=== PATIENT | male | born 2000 | race Asian ===

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

== ENCOUNTER 2018-11-22 22:38 | Emergency (ER) | payer OTHER ==
[~2018-11-22] VITALS: Ht 175.3 cm; Wt 72.6 kg
[2018-11-23 00:05] VITALS: BP 110/60; TEMP 98.3
== END 2018-11-23 00:05 | disposition home or self-care (01) ==
LOC: ED 22:38
DX: G43.909 Migraine, unspecified, not intractable, without status migrainosus (principal)
CPT/HCPCS: 96372; 99283; J1885; J2405

== ENCOUNTER 2019-04-22 21:43 | Emergency (ER) | payer OTHER ==
[~2019-04-22] VITALS: Ht 175.3 cm; Wt 69.4 kg
[2019-04-22 22:45] VITALS: BP 120/64; TEMP 98
== END 2019-04-22 22:45 | disposition home or self-care (01) ==
LOC: ED 21:43
DX: K01.1 Impacted teeth (principal)
CPT/HCPCS: 99282

== ENCOUNTER 2019-04-27 05:51 | Emergency (ER) | payer OTHER ==
[~2019-04-27] VITALS: Ht 175.3 cm; Wt 61.7 kg
[2019-04-27 08:08] VITALS: BP 114/56; TEMP 99
== END 2019-04-27 08:16 | disposition home or self-care (01) ==
LOC: ED 05:51
DX: G43.909 Migraine, unspecified, not intractable, without status migrainosus (principal); R11.2 Nausea with vomiting, unspecified
CPT/HCPCS: 96372; 99283; J3030

== ENCOUNTER 2019-06-30 21:57 | Emergency (ER) | payer OTHER ==
[~2019-06-30] VITALS: Ht 175.3 cm; Wt 61.7 kg
[2019-06-30 23:09] LABS: PLATELET COUNT 142 K/uL (142-355)
[2019-06-30 23:47] VITALS: TEMP 98.4
[2019-07-01 00:09] LABS: POTASSIUM 3.8 mmol/L (3.6-5.2)
[2019-07-01 07:06] VITALS: BP 130/77
== END 2019-07-01 07:07 | disposition short-term general hospital (02) ==
LOC: ED 21:57
PROVIDERS: Family Medicine
PROC: 30233N1 Transfusion of Nonautologous Red Blood Cells into Peripheral Vein, Percutaneous Approach (ICD-10-PCS; principal; 2019-06-30)
DX: D64.9 Anemia, unspecified (principal); K52.9 Noninfective gastroenteritis and colitis, unspecified; K82.8 Other specified diseases of gallbladder; R16.1 Splenomegaly, not elsewhere classified; R94.31 Abnormal electrocardiogram [ECG] [EKG]
CPT/HCPCS: 36415; 36430; 80053; 80307; 81000; 82150; 83605; 83690; 85007; 85027; 86850; 86900; 86901; 86922; 87040; 87502; 93005; 96361; 96365; 96368; 96375; 99284; J0690; J1885; J2405; J3490; P9016; Q9963

== ENCOUNTER 2019-07-01 07:24 | Outpatient (CLI) | payer OTHER | END 2019-07-01 08:44 | disposition short-term general hospital (02) | LOC: AMB 07:24 | DX: D64.9 Anemia, unspecified (principal); K52.9 Noninfective gastroenteritis and colitis, unspecified; K82.8 Other specified diseases of gallbladder; R94.31 Abnormal electrocardiogram [ECG] [EKG] | CPT/HCPCS: A0425; A0427 ==

== ENCOUNTER 2019-08-01 11:35 | Emergency (ER) | payer OTHER ==
[~2019-08-01] VITALS: Ht 175.3 cm; Wt 61.7 kg
[2019-08-01 13:10] VITALS: BP 114/60; TEMP 98.9
== END 2019-08-01 13:17 | disposition home or self-care (01) ==
LOC: ED 11:35
DX: J06.9 Acute upper respiratory infection, unspecified (principal); R50.9 Fever, unspecified; F17.210 Nicotine dependence, cigarettes, uncomplicated
CPT/HCPCS: 87502; 87651; 99283

== ENCOUNTER 2019-10-31 20:46 | Emergency (ER) | payer OTHER ==
[~2019-10-31] VITALS: Ht 175.3 cm; Wt 61.7 kg
[2019-10-31 21:25] LABS: POTASSIUM 4.8 mmol/L (3.6-5.2); SODIUM 122 mmol/L (136-145)
[2019-10-31 21:30] LABS: PLATELET COUNT 115 K/uL (142-355)
[2019-10-31 21:37] LABS: PARTIAL THROMBOPLASTIN TIME 27.9 SECONDS (24.5-33.6)
[2019-11-01 01:54] VITALS: BP 171/96; TEMP 98.4
== END 2019-11-01 01:56 | disposition short-term general hospital (02) ==
LOC: ED 20:46
PROVIDERS: Hospitalist
PROC: 0T9B70Z Drainage of Bladder with Drainage Device, Via Natural or Artificial Opening (ICD-10-PCS; principal; 2019-10-31)
DX: R56.9 Unspecified convulsions (principal); R41.82 Altered mental status, unspecified
CPT/HCPCS: 36415; 51702; 80053; 80307; 80320; 82550; 83605; 83880; 84484; 85027; 85610; 85730; 87040; 93005; 96360; 96375; 99284; J2060